=== PATIENT | female | born 1990 | race Caucasian/White ===

== ENCOUNTER 2021-11-03 16:56 | Emergency (ER) | payer MEDICAID ==
[~2021-11-03] VITALS: Ht 157.5 cm; Wt 56.7 kg
[2021-11-03 16:56] VITALS: BP_SYST 135
[2021-11-03] MEDS ORDERED: LORazepam 1 MG TABLET PO ONE (17:45)
[2021-11-03] MEDS ORDERED: HYDR50TA61 PO (18:31)
[2021-11-03 19:33] VITALS: BP_SYST 122
== END 2021-11-03 19:33 | disposition home or self-care (01) ==
LOC: SED 16:56
DX: F41.9 Anxiety disorder, unspecified (principal)
CPT/HCPCS: 99283